=== PATIENT | female | born 1955 | race Caucasian/White ===

== ENCOUNTER 2017-04-20 08:41 | Emergency (ER) ==
[2017-04-20 08:48] VITALS: BP 128/73; TEMP 98.2; BMI 29.5
[2017-04-20 09:06] LABS: BILIRUBIN,URINE Negative (NEGATIVE); KETONES,URINE Negative (NEGATIVE); LEUKOCYTE ESTERASE ,URINE 1+ (NEGATIVE); NITRITE,URINE Positive (NEGATIVE); PROTEIN,URINE Negative (NEGATIVE); URINE, BLOOD Trace-intact (NEGATIVE)
[2017-04-20 09:07] LABS: ADD URINE MICROSCOPIC YES
[2017-04-20 09:14] LABS: BACTERIA,URINE TRACE (NOT PRESENT)
[2017-04-20] MEDS ORDERED: LIDOCAINE 1 % AMP 5 ML (SUTURES) IM STA (09:43)
[2017-04-20] MEDS ORDERED: ROCEPHIN IM STA (09:43)
--- NOTE | 2017-04-20 09:47 | ED.PDOC ---
General ED Provider: Dr. MARCIN VIDALES Chief Complaint: Urinary Problem Stated Complaint: dysuria Time Seen by Physician: 09:00 (no fever no abdominal pain . No N/V) Mode of Arrival: Walk-In Information Source: Patient Exam Limitations: No limitations Primary Care Provider: RORO CHAVEZ Referred to ED by: Other (history of frquent UTI PER PT) Nursing and Triage Documentation Reviewed and Agree: Yes (seen with catina at all times, nonetoxic presentation) Complaint Exam - Complaint/Exam Patient Complains of: Reports: Dysuria ( 5DAYS , NONETOXIC PRESENNATION, NO N/V / OR ABDOMINAL PAIN) Onset/Duration: 5 DAY Symptoms Are: Still present Timing: Intermittent Initial Severity: Mild Current Severity: Mild Location of Pain: Reports: Suprapubic. Denies: Flank Character: Reports: Dull Aggravating: Reports: Urination Alleviating: Reports: None Associated Signs and Symptoms: Reports: Dysuria. Denies: Diaphoresis, Back pain , Fever, Hematuria, Constipation, Blood in stool, Rectal pain, Appetite change, Nausea, Vomiting, Decreased urine output, Increased urine frequency, Increased thirst, Decreased activity, Lethargy, Abdominal Pain, Bubble bath use, Vaginal bleeding, Vaginal discharge, Genital swelling, Genital blisters, Retained foreign body Ovarian Torsion Risk Factors: Reports: None Surgical Obstruction Risk Factors: Reports: None RH Status: Unknown Related Surgical History: Reports: None Abdominal Findings: Present: None Differential Diagnoses: UTI Review of Systems - Review Of Systems Constitutional: Reports: No symptoms Eyes: Reports: No symptoms Ears, Nose, Mouth, Throat: Reports: No symptoms Respiratory: Reports: No symptoms Cardiac: Reports: No symptoms GI: Reports: No symptoms : Reports: Dysuria Musculoskeletal: Reports: No symptoms Skin: Reports: No symptoms Neurological: Reports: No symptoms Endocrine: Reports: No symptoms Hematologic/Lymphatic: Reports: No symptoms All Other Systems: Reviewed and Negative Past Medical History - Past Medical History Previously Healthy: Yes Endocrine: Reports: None Cardiovascular: Reports: None Respiratory: Reports: None Hematological: Reports: None Gastrointestinal: Reports: None Genitourinary: Reports: None Neuro/Psych: Reports: None Musculoskeletal: Reports: None Cancer: Reports: None Last Menstrual Period: none - Surgical History General Surgical History: Reports: Orthopedic (left knee) - Family History Family History: Reports: None - Social History Smoking Status: Never smoker Hx Substance Use: No Alcohol Screening: Occasionally Physical Exam - Physical Exam Appearance: Well-appearing, No pain distress, Well-nourished Eyes: MARTITA, EOMI, Conjunctiva clear ENT: Ears normal, Nose normal, Oropharynx normal Respiratory: Airway patent, Breath sounds clear, Breath sounds equal, Respirations nonlabored Cardiovascular: RRR, Pulses normal, No rub, No murmur GI/: Soft, Nontender, No masses, Bowel sounds normal, No Organomegaly Musculoskeletal: Normal strength, ROM intact, No edema, No calf tenderness Skin: Warm, Dry, Normal color Neurological: Sensation intact, Motor intact, Reflexes intact, Cranial nerves intact, Alert, Oriented Psychiatric: Affect appropriate, Mood appropriate Critical Care Note - Critical Care Note Total Time (mins): 0 Course - Course Orders, Labs, Meds: Lab Review 04/20/17 09:00 Urine Color Dark Urine Clarity Clear Urine pH 6.0 Ur Specific [place] 1.010 Urine Protein Negative Urine Glucose (UA) Trace Urine Ketones Negative Urine Blood Trace-intact Urine Nitrite Positive Urine Bilirubin Negative Urine Urobilinogen 0.2 Ur Leukocyte Esterase 1+ Urine Microscopic RBC 5-10 Urine Microscopic WBC 30-50 Ur Squamous Epith Cells 0-2 Ur Renal Epithelial Cell 0-2 Urine Bacteria Trace Orders Category Date Time Status URINALYSIS C & S IF INDICATED Stat LAB 04/20/17 09:00 Completed URINE CULTURE Stat LAB 04/20/17 09:13 Received Ceftriaxone Sodium [Rocephin] MEDS 04/20/17 09:43 Discontinued 1 gm IM ONCE STA Lidocaine HCl/Pf [Lidocaine 1 % Amp 5 ml (Sutures)] MEDS 04/20/17 09:43 Discontinued 2.1 ml IM ONCE STA Medications Discontinued Medications Generic Name Dose Route Start Last Admin Trade Name Freq PRN Reason Stop Dose Admin Ceftriaxone Sodium 1 gm 04/20/17 09:43 Rocephin IM 04/20/17 09:44 ONCE STA Lidocaine HCl 2.1 ml 04/20/17 09:43 Lidocaine 1 % Amp 5 Ml (Sutures) IM 04/20/17 09:44 ONCE STA Vital Signs: Temp Pulse Resp BP Pulse Ox 04/20/17 08:41 98.2 F 64 18 128/73 94 L Departure - Departure Time of Disposition: 10:15 (CATINA PRESENT ALL TIMES ) Disposition: HOME SELF-CARE Discharge Problem: Urinary tract infectious disease, Urinary symptoms Instructions: Urinary Tract Infection in Women (ED) Condition: Good Pt referred to PMD for follow-up: Yes Additional Instructions: Please call your Family Physician as soon as possible to schedule a follow-up appointment. IF YOU HAVE FEVER, PAIN , VOMITING SICKER IN GENERAL THE UTI MAY BE SPREADING RETURN OR SEE YOUR RUBY JACQUELINE. DIABETES PUTS YOU AT MUCH HIGHER RISK OF INFECTION, PLEASE DO NOT WAIT IT OUT SINCE BY DOING SO YOU WILL GET MUCH SICKER AND INJURED RETURN OR SEE YOUR MD DISCUSSED HERE. Prescriptions: Sulfamethoxazole/Trimethoprim [Bactrim Ds 800/160 mg] 1 tab PO Q12HR #10 tablet Phenazopyridine HCl [Pyridium] 100 mg PO TID #6 tablet Allergies/Adverse Reactions: Allergies clarithromycin [From Biaxin] Adverse Reaction (Verified 04/20/17 08:49) Hives Home Medications: Ambulatory Orders Amitriptyline HCl 50 mg PO BEDTIME 03/07/16 Amlodipine Besylate [Norvasc] 10 mg PO DAILY 03/07/16 Atenolol [Tenormin] 50 mg PO DAILY 03/07/16 Citalopram Hydrobromide [Celexa] 20 mg PO DAILY 03/07/16 Diazepam 5 mg PO BID 03/07/16 Diphenhydramine HCl [Benadryl] 25 mg PO Q6H #14 capsule 03/07/16 Furosemide [Lasix] 40 mg PO DAILY 03/07/16 Glipizide 5 mg PO BID 03/07/16 Levothyroxine Sodium [Synthroid] 150 mcg PO DAILY 03/07/16 Metformin HCl [Glucophage] 500 mg PO BIDWM 03/07/16 Nitroglycerin [Nitro-Dur 0.4 mg/Hr] 1 patch TP DAILY PRN 03/07/16 Nitroglycerin [Nitrostat] 0.4 mg SL DIRECTED PRN 03/07/16 Ranolazine [Ranexa] 1,000 mg PO BID 03/07/16 Phenazopyridine HCl [Pyridium] 100 mg PO TID #6 tablet 04/20/17 Sulfamethoxazole/Trimethoprim [Bactrim Ds 800/160 mg] 1 tab PO Q12HR #10 tablet 04/20/17
== END 2017-04-20 10:24 | disposition home or self-care (01) ==
LOC: ED 08:41
DX: N39.0 Urinary tract infection, site not specified (principal)
CPT/HCPCS: 81001; 87086; 96372; 99283

== ENCOUNTER 2017-09-15 14:46 | Emergency (ER) ==
[2017-09-15 14:51] VITALS: BP 137/84; TEMP 97.7
[2017-09-15 14:56] VITALS: BMI 29.2
--- NOTE | 2017-09-15 15:59 | ED.PDOC ---
General ED Provider: Dr. MARCIN VIDALES Chief Complaint: Urinary Problem Stated Complaint: uti symptoms Time Seen by Physician: 15:00 Mode of Arrival: Walk-In Information Source: Patient Exam Limitations: No limitations Primary Care Provider: RORO CHAVEZ Nursing and Triage Documentation Reviewed and Agree: Yes Reviewed sepsis parameters & appropriate labs ordered?: Yes System Inflammatory Response Syndrome: Not Applicable Sepsis Protocol: For patient's 13 years and over: Temp is 96.8 and below OR 101 and greater Pulse >90 BPM Resp >20/minute Acutely Altered Mental Status Are patient's symptoms suggestive of a new infection, such as: -Pneumonia -Skin, Soft Tissue -Endocarditis -UTI -Bone, Joint Infection -Implantable Device -Acute Abdominal Infection -Wound Infection -Meningitis -Blood Stream Catheter Infection -Unknown System Inflammatory Response Syndrome: Not Applicable Complaint Exam - Complaint/Exam Patient Complains of: Reports: Dysuria Onset/Duration: today Symptoms Are: Still present Timing: Constant Initial Severity: Severe Current Severity: Severe Character: Reports: Burning Aggravating: Reports: Urination Alleviating: Reports: None Associated Signs and Symptoms: Reports: Back pain Review of Systems - Review Of Systems Constitutional: Reports: No symptoms Eyes: Reports: No symptoms Ears, Nose, Mouth, Throat: Reports: No symptoms Respiratory: Reports: No symptoms Cardiac: Reports: No symptoms GI: Reports: No symptoms : Reports: Dysuria, Flank pain Musculoskeletal: Reports: No symptoms Skin: Reports: No symptoms Neurological: Reports: No symptoms Endocrine: Reports: No symptoms Hematologic/Lymphatic: Reports: No symptoms All Other Systems: Reviewed and Negative Past Medical History - Past Medical History Previously Healthy: Yes Endocrine: Reports: None Cardiovascular: Reports: None Respiratory: Reports: None Hematological: Reports: None Gastrointestinal: Reports: None Genitourinary: Reports: None Neuro/Psych: Reports: None Musculoskeletal: Reports: None Cancer: Reports: None Last Menstrual Period: n/a - Surgical History General Surgical History: Reports: Orthopedic (left knee) - Family History Family History: Reports: None - Social History Smoking Status: Never smoker Hx Substance Use: No Alcohol Screening: Occasionally Physical Exam - Physical Exam Appearance: Well-appearing, No pain distress, Well-nourished Eyes: MARTITA, EOMI, Conjunctiva clear ENT: Ears normal, Nose normal, Oropharynx normal Respiratory: Airway patent, Breath sounds clear, Breath sounds equal, Respirations nonlabored Cardiovascular: RRR, Pulses normal, No rub, No murmur GI/: Soft, Nontender, No masses, Bowel sounds normal, No Organomegaly Musculoskeletal: Normal strength, ROM intact, No edema, No calf tenderness Skin: Warm, Dry, Normal color Neurological: Sensation intact, Motor intact, Reflexes intact, Cranial nerves intact, Alert, Oriented Psychiatric: Affect appropriate, Mood appropriate Critical Care Note - Critical Care Note Total Time (mins): 0 Course - Course Orders, Labs, Meds: Lab Review 09/15/17 15:30 Urine Color Yellow Urine Clarity Slightly Urine pH 7.0 Ur Specific [place] 1.010 Urine Protein 1+ Urine Glucose (UA) Negative Urine Ketones Negative Urine Blood 3+ Urine Nitrite Negative Urine Bilirubin Negative Urine Urobilinogen 0.2 Ur Leukocyte Esterase 3+ Urine Microscopic RBC 5-10 Urine Microscopic WBC Tntc Ur Squamous Epith Cells Not present Ur Renal Epithelial Cell 5-10 Orders Category Date Time Status URINALYSIS C & S IF INDICATED Stat LAB 09/15/17 15:30 Completed URINE CULTURE Routine LAB 09/15/17 15:00 Received Vital Signs: Temp Pulse Resp BP Pulse Ox 09/15/17 14:47 97.7 F 64 16 137/84 95 Departure - Departure Time of Disposition: 15:58 Disposition: HOME SELF-CARE Discharge Problem: Urinary tract infectious disease Instructions: Dysuria (ED), Urinary Tract Infection in Women (ED) Condition: Good Pt referred to PMD for follow-up: Yes IPMP verified?: Yes Additional Instructions: Please call your Family Physician as soon as possible to schedule a follow-up appointment. Allergies/Adverse Reactions: Allergies clarithromycin [From Biaxin] Adverse Reaction (Verified 09/15/17 14:53) Hives Home Medications: Ambulatory Orders Amitriptyline HCl 50 mg PO BEDTIME 03/07/16 Amlodipine Besylate [Norvasc] 10 mg PO DAILY 03/07/16 Atenolol [Tenormin] 50 mg PO DAILY 03/07/16 Citalopram Hydrobromide [Celexa] 20 mg PO DAILY 03/07/16 Diazepam 5 mg PO BID 03/07/16 Furosemide [Lasix] 40 mg PO DAILY 03/07/16 Glipizide 5 mg PO BID 03/07/16 Levothyroxine Sodium [Synthroid] 150 mcg PO DAILY 03/07/16 Metformin HCl [Glucophage] 1,000 mg PO BIDWM 03/07/16 Nitroglycerin [Nitro-Dur 0.4 mg/Hr] 1 patch TP DAILY PRN 03/07/16 Nitroglycerin [Nitrostat] 0.4 mg SL DIRECTED PRN 03/07/16 Ranolazine [Ranexa] 1,000 mg PO BID 03/07/16 Diphenhydramine HCl [Benadryl] 25 mg PO Q6H PRN 09/15/17 Hum Insulin NPH/Reg Insulin Hm [Novolin 70-30 Insulin] 30 unit SUBCUT DAILY
== END 2017-09-15 16:12 | disposition home or self-care (01) ==
LOC: ED 14:46
DX: N39.0 Urinary tract infection, site not specified (principal)
CPT/HCPCS: 81001; 87086; 87186; 99283

== ENCOUNTER 2017-09-20 11:25 | Outpatient (CLI) | END 2017-09-20 11:26 | disposition short-term general hospital (02) | LOC: AMBL 11:25 | PROVIDERS: ATTEND Internal Medicine | DX: R07.9 Chest pain, unspecified (principal); R11.0 Nausea; R53.1 Weakness; R42 Dizziness and giddiness ==

== ENCOUNTER 2018-11-24 11:18 | Emergency (ER) ==
[2018-11-24 11:21] VITALS: BP 153/70; TEMP 98.2; BMI 29.9
--- NOTE | 2018-11-24 12:50 | ED.PDOC ---
General ED Provider: Dr. DAYO RUIZ Chief Complaint: Rash Stated Complaint: Skin rash-poison regina Time Seen by Physician: 11:25 Mode of Arrival: Walk-In Information Source: Patient Exam Limitations: No limitations Primary Care Provider: RORO CHAVEZ Nursing and Triage Documentation Reviewed and Agree: Yes Does patient meet sepsis criteria?: No System Inflammatory Response Syndrome: Not Applicable Sepsis Protocol: For patient's 13 years and over: Temp is 96.8 and below OR 101 and greater Pulse >90 BPM Resp >20/minute Acutely Altered Mental Status Are patient's symptoms suggestive of a new infection, such as: -Pneumonia -Skin, Soft Tissue -Endocarditis -UTI -Bone, Joint Infection -Implantable Device -Acute Abdominal Infection -Wound Infection -Meningitis -Blood Stream Catheter Infection -Unknown Skin Complaint Exam - Skin Rash/Itching Complaint/Exam Onset/Duration: yesterday Symptoms Are: Still present Initial Severity: Mild Current Severity: Moderate Location: Forearm /dorsal hand Potential Exposures: Reports: Plants Aggravating: Reports: Clothing Alleviating: Reports: None Associated Signs and Symptoms: Denies: Difficulty breathing, Fever, Chills Skin Findings: Present: Papules (papulovesiculo lesion.linear distributio on distal rt forearm and hand) Differential Diagnoses: Poison [place] Review of Systems - Review Of Systems Constitutional: Reports: No symptoms Eyes: Reports: No symptoms Ears, Nose, Mouth, Throat: Reports: No symptoms Respiratory: Reports: No symptoms Cardiac: Reports: No symptoms GI: Reports: No symptoms : Reports: No symptoms Musculoskeletal: Reports: No symptoms Skin: Reports: No symptoms Neurological: Reports: No symptoms Endocrine: Reports: No symptoms Hematologic/Lymphatic: Reports: No symptoms All Other Systems: Reviewed and Negative Past Medical History - Past Medical History Previously Healthy: Yes Endocrine: Reports: None Cardiovascular: Reports: None Respiratory: Reports: None Hematological: Reports: None Gastrointestinal: Reports: None Genitourinary: Reports: None Neuro/Psych: Reports: None Musculoskeletal: Reports: None Cancer: Reports: None Last Menstrual Period: HYSTERECTOMY - Surgical History General Surgical History: Reports: Orthopedic (left knee) - Family History Family History: Reports: None - Social History Smoking Status: Never smoker Hx Substance Use: No Alcohol Screening: Occasionally - Immunizations Tetanus Shot up to Date: No Physical Exam - Physical Exam Appearance: Well-appearing, No pain distress, Well-nourished Ill-appearing: None Pain Distress: None Eyes: MARTITA, EOMI, Conjunctiva clear ENT: Ears normal, Nose normal, Oropharynx normal Respiratory: Airway patent, Breath sounds clear, Breath sounds equal, Respirations nonlabored Cardiovascular: RRR, Pulses normal, No rub, No murmur GI/: Soft, Nontender, No masses, Bowel sounds normal, No Organomegaly Musculoskeletal: Normal strength, ROM intact, No edema, No calf tenderness Skin: Warm, Dry, Normal color Neurological: Sensation intact, Motor intact, Reflexes intact, Cranial nerves intact, Alert, Oriented Psychiatric: Affect appropriate, Mood appropriate Critical Care Note - Critical Care Note Total Time (mins): 0 Course - Course Vital Signs: Temp Pulse Resp BP Pulse Ox 11/24/18 11:19 98.2 F 61 18 153/70 H 95 Departure - Departure Time of Disposition: 12:30 Disposition: HOME SELF-CARE Discharge Problem: Rash and nonspecific skin eruption, Poison regina dermatitis Instructions: Poison [place] (ED), Cold Compress or Soak (ED) Condition: Stable Pt referred to PMD for follow-up: Yes (1 wk) IPMP verified?: No Additional Instructions: Apply caladryl lotion for drying of rash Take Benadryl 25 mg every 6 hrs for itching zyrtec 1 daily untll cleared Use Betameth cream twice daily for relief of itching assoc with rash Prescriptions: Betamethasone Valerate [Betamethasone Valerate 0.1%] 1 applic TP BID 10 Days # 30 gm Cetirizine HCl [Zyrtec] 10 mg PO DAILY #20 tablet Allergies/Adverse Reactions: Allergies clarithromycin [From Biaxin] Adverse Reaction (Verified 11/24/18 11:21) Hives Home Medications: Ambulatory Orders Amitriptyline HCl 50 mg PO BEDTIME 03/07/16 Amlodipine Besylate [Norvasc] 10 mg PO DAILY 03/07/16 Atenolol [Tenormin] 50 mg PO DAILY 03/07/16 Citalopram Hydrobromide [Celexa] 20 mg PO DAILY 03/07/16 Diazepam 5 mg PO BID 03/07/16 Furosemide [Lasix] 40 mg PO DAILY 03/07/16 Glipizide 5 mg PO BID 03/07/16 Levothyroxine Sodium [Synthroid] 150 mcg PO DAILY 03/07/16 Metformin HCl [Glucophage] 1,000 mg PO BIDWM 03/07/16 Nitroglycerin [Nitro-Dur 0.4 mg/Hr] 1 patch TP DAILY PRN 03/07/16 Nitroglycerin [Nitrostat] 0.4 mg SL DIRECTED PRN 03/07/16 Ranolazine [Ranexa] 1,000 mg PO BID 03/07/16 Diphenhydramine HCl [Benadryl] 25 mg PO Q6H PRN 09/15/17 Hum Insulin NPH/Reg Insulin Hm [Novolin 70-30 Insulin] 30 unit SUBCUT DAILY Betamethasone Valerate [Betamethasone Valerate 0.1%] 1 applic TP BID 10 Days # 30 gm 11/24/18 Cetirizine HCl [Zyrtec] 10 mg PO DAILY #20 tablet 11/24/18 Disposition Discussed With: Patient
== END 2018-11-24 13:03 | disposition home or self-care (01) ==
LOC: ED 11:18
DX: L23.7 Allergic contact dermatitis due to plants, except food (principal)
CPT/HCPCS: 99282

== ENCOUNTER 2019-04-12 17:34 | Outpatient (CLI) | END 2019-04-12 18:01 | disposition short-term general hospital (02) | LOC: AMBL 17:34 | PROVIDERS: ATTEND Internal Medicine | DX: R53.1 Weakness (principal); R00.1 Bradycardia, unspecified ==